=== PATIENT | female | born 1985 | race Caucasian/White ===

== ENCOUNTER 2018-11-27 16:22 | Emergency (ER) | payer OTHER ==
--- NOTE | 2018-11-27 16:46 | EDM.PDOC ---
ED HPI GENERAL MEDICAL PROBLEM - General Chief Complaint: Skin Complaint Stated Complaint: PT HAS RASH OVER BODY Time Seen by Provider: 11/27/18 16:45 Source of Information: Reports: Patient History Limitations: Reports: No Limitations - History of Present Illness INITIAL COMMENTS - FREE TEXT/NARRATIVE: HISTORY AND PHYSICAL: History of present illness: Patient is an 9-year-old female presents with mom for concern of a rash. Mom states that they were recently traveling and staying in hotels and the family. When they returned home they both started developing a rash goes from the trunk and has spread down the legs. States the rash is itchy and not painful. Does not think that it is bedbugs and is concerned that it is scabies. Denies fevers , chills, nausea, vomiting, abdominal pain and have no other complaints at this time. Review of systems: As per history of present illness and below otherwise all systems reviewed and negative. Past medical history: As per history of present illness and as reviewed below otherwise noncontributory. Surgical history: As per history of present illness and as reviewed below otherwise noncontributory. Social history: No reported history of drug or alcohol abuse. Family history: As per history of present illness and as reviewed below otherwise noncontributory. Physical exam: General: Patient sitting comfortably in no acute distress and nontoxic appearing HEENT: Atraumatic, normocephalic, pupils reactive, negative for conjunctival pallor or scleral icterus, mucous membranes moist, throat clear, neck supple, nontender, trachea midline. No meningeal signs. Lungs: Clear to auscultation, breath sounds equal bilaterally, chest nontender. Heart: S1S2, regular, negative for clicks, rubs, or overt murmur. Abdomen: Soft, nondistended, nontender. Negative for masses or hepatosplenomegaly. Negative for costovertebral tenderness. No rigidity, rebound , guarding. Pelvis: Stable nontender. Genitourinary: Deferred. Rectal: Deferred. Skin: Multiple small red papules on the trunk and legs Extremities: Atraumatic, negative for cords or calf pain. Neurovascular unremarkable. Neuro: Awake, alert, oriented. Cranial nerves II through XII unremarkable. Cerebellum unremarkable. Motor and sensory unremarkable throughout. Exam nonfocal. Notes: Diagnostics: None Therapeutics: None Prescriptions: Permethrin Impression: Scabies Plan: 1. Use cream as instructed. Wash clothing, linens, stuffed animals in hot water or place in a plastic bag for at least 3 days. 2. Follow up with primary care provider 3. Return to ED as needed as discussed Definitive disposition and diagnosis as appropriate pending reevaluation and review of above. - Related Data Allergies Allergy/AdvReac Type Severity Reaction Status Date / Time No Known Allergies Allergy Verified 11/27/18 16:34 Home Meds: Home Meds Vilazodone Hydrochloride [Viibryd] 1 tab PO DAILY 03/07/18 [History] Permethrin 60 gm TP ONETIME 1 Days #1 tube 11/27/18 [Rx] Past Medical History Neurological History: Reports: Other (See Below) Other Neuro History: brain tumor Psychiatric History: Reports: Depression - Infectious Disease History Infectious Disease History: Reports: Chicken Pox Social & Family History - Family History Family Medical History: Noncontributory - Tobacco Use Smoking Status *Q: Former Smoker Used Tobacco, but Quit: Yes Month/Year Tobacco Last Used: 2017 - Caffeine Use Caffeine Use: Reports: Coffee, Energy Drinks, Soda, Tea - Recreational Drug Use Recreational Drug Use: No ED ROS GENERAL - Review of Systems Review Of Systems: ROS reveals no pertinent complaints other than HPI. ED EXAM, SKIN/RASH Exam: See Below (see dictation) Course - Vital Signs Last Recorded V/S: Last Vital Signs Temp 97.6 F 11/27/18 16:35 Pulse 87 11/27/18 16:35 Resp 17 11/27/18 16:35 BP 116/78 11/27/18 16:35 Pulse Ox 100 11/27/18 16:35 Departure - Departure Time of Disposition: 16:45 Disposition: Home, Self-Care 01 Condition: Good Clinical Impression: Scabies - Discharge Information Prescriptions: Permethrin 60 gm TP ONETIME 1 Days #1 tube Instructions: Scabies, Adult Forms: ED Department Discharge Additional Instructions: The following information is given to patients seen in the emergency department who are being discharged to home. This information is to outline your options for follow-up care. We provide all patients seen in our emergency department with a follow-up referral. The need for follow-up, as well as the timing and circumstances, are variable depending upon the specifics of your emergency department visit. If you don't have a primary care physician on staff, we will provide you with a referral. We always advise you to contact your personal physician following an emergency department visit to inform them of the circumstance of the visit and for follow-up with them and/or the need for any referrals to a consulting specialist. The emergency department will also refer you to a specialist when appropriate. This referral assures that you have the opportunity for follow-up care with a specialist. All of these measure are taken in an effort to provide you with optimal care, which includes your follow-up. Under all circumstances we always encourage you to contact your private physician who remains a resource for coordinating your care. When calling for follow-up care, please make the office aware that this follow-up is from your recent emergency room visit. If for any reason you are refused follow-up, please contact the [facility] Emergency Department at and asked to speak to the emergency department charge nurse. [facility] [address] [place] [id number] [facility] [address] [place] [id number] 1. Use cream as instructed. Wash clothing, linens, stuffed animals in hot water or place in a plastic bag for at least 3 days. 2. Follow up with primary care provider 3. Return to ED as needed as discussed
== END 2018-11-27 17:06 | disposition home or self-care (01) ==
LOC: MW.ED 16:22
DX: B86 Scabies (principal); F32.9 Major depressive disorder, single episode, unspecified; Z79.899 Other long term (current) drug therapy
CPT/HCPCS: 99282

== ENCOUNTER 2019-05-04 15:05 | Emergency (ER) | payer MEDICAID, OTHER ==
--- NOTE | 2019-05-04 15:21 | EDM.PDOC ---
ED HPI GENERAL MEDICAL PROBLEM - General Chief Complaint: ENT Problem Stated Complaint: SORE THROAT Time Seen by Provider: 05/04/19 15:21 Source of Information: Reports: Patient - History of Present Illness INITIAL COMMENTS - FREE TEXT/NARRATIVE: HISTORY AND PHYSICAL: History of present illness: [Presents with sore throat and general malaise for the last 48 hours no current nausea vomiting chills sweats ] Review of systems: As per history of present illness and below otherwise all systems reviewed and negative. Past medical history: As per history of present illness and as reviewed below otherwise noncontributory. Surgical history: As per history of present illness and as reviewed below otherwise noncontributory. Social history: No reported history of drug or alcohol abuse. Family history: As per history of present illness and as reviewed below otherwise noncontributory. Physical exam: HEENT: Atraumatic, normocephalic, pupils reactive, negative for conjunctival pallor or scleral icterus, mucous membranes moist, throat clear, neck supple, nontender, trachea midline. moderate erythema no exudates Lungs: Clear to auscultation, breath sounds equal bilaterally, chest nontender. Heart: S1S2, regular, negative for clicks, rubs, or JVD. Abdomen: Soft, nondistended, nontender. Negative for masses or hepatosplenomegaly. Negative for costovertebral tenderness. Pelvis: Stable nontender. Genitourinary: Deferred. Rectal: Deferred. Extremities: Atraumatic, negative for cords or calf pain. Neurovascular unremarkable. Neuro: Awake, alert, oriented. Cranial nerves II through XII unremarkable. Cerebellum unremarkable. Motor and sensory unremarkable throughout. Exam nonfocal. Diagnostics: [Influenza/strep ] Therapeutics: [ flu Rest fluids nutrition ] Impression: [ influenzxa b Definitive disposition and diagnosis as appropriate pending reevaluation and review of above. throat Pain Score (Numeric/FACES): 9 - Related Data Allergies Allergy/AdvReac Type Severity Reaction Status Date / Time No Known Allergies Allergy Verified 05/04/19 15:15 Home Meds: Home Meds Vilazodone Hydrochloride [Viibryd] 1 tab PO DAILY 03/07/18 [History] Permethrin 60 gm TP ONETIME 1 Days #1 tube 11/27/18 [Rx] Past Medical History Neurological History: Reports: Other (See Below) Other Neuro History: brain tumor Psychiatric History: Reports: Depression - Infectious Disease History Infectious Disease History: Reports: None Social & Family History - Family History Family Medical History: Noncontributory - Tobacco Use Smoking Status *Q: Never Smoker - Caffeine Use Caffeine Use: Reports: Coffee - Recreational Drug Use Recreational Drug Use: No ED ROS GENERAL - Review of Systems Review Of Systems: See Below ED EXAM, GENERAL - Physical Exam Exam: See Below Course - Vital Signs Last Recorded V/S: Last Vital Signs Temp 97.8 F 05/04/19 15:16 Pulse 90 05/04/19 15:16 Resp 14 05/04/19 15:16 BP 124/81 05/04/19 15:16 Pulse Ox 96 05/04/19 15:16 - Orders/Labs/Meds Orders: Active Orders 24 hr Category Date Time Status STREP SCRN A RAPID W CULT CONF [RM] Stat Lab 05/04/19 15:19 Received Departure - Departure Time of Disposition: 15:56 Disposition: Home, Self-Care 01 Condition: Good Clinical Impression: Influenza - Discharge Information Referrals: PCP,None [Primary Care Provider] - Forms: ED Department Discharge Additional Instructions: The following information is given to patients seen in the emergency department who are being discharged to home. This information is to outline your options for follow-up care. We provide all patients seen in our emergency department with a follow-up referral. The need for follow-up, as well as the timing and circumstances, are variable depending upon the specifics of your emergency department visit. If you don't have a primary care physician on staff, we will provide you with a referral. We always advise you to contact your personal physician following an emergency department visit to inform them of the circumstance of the visit and for follow-up with them and/or the need for any referrals to a consulting specialist. The emergency department will also refer you to a specialist when appropriate. This referral assures that you have the opportunity for follow-up care with a specialist. All of these measure are taken in an effort to provide you with optimal care, which includes your follow-up. Under all circumstances we always encourage you to contact your private physician who remains a resource for coordinating your care. When calling for follow-up care, please make the office aware that this follow-up is from your recent emergency room visit. If for any reason you are refused follow-up, please contact the [facility] emergency department at and asked to speak to the emergency department charge nurse. Sepsis Event Note - Evaluation Sepsis Screening Result: No Definite Risk - Focused Exam Vital Signs: Vital Signs Temp Pulse Resp BP Pulse Ox 05/04/19 15:16 97.8 F 90 14 124/81 96 Date Exam was Performed: 05/04/19 Time Exam was Performed: 15:55 - My Orders Last 24 Hours: My Active Orders 05/04/19 15:19 STREP SCRN A RAPID W CULT CONF [RM] Stat - Assessment/Plan Last 24 Hours: My Active Orders 05/04/19 15:19 STREP SCRN A RAPID W CULT CONF [RM] Stat
== END 2019-05-04 16:07 | disposition home or self-care (01) ==
LOC: MW.ED 15:05
DX: J10.1 Influenza due to other identified influenza virus with other respiratory manifestations (principal); F32.9 Major depressive disorder, single episode, unspecified; Z79.899 Other long term (current) drug therapy
CPT/HCPCS: 87081; 87804; 87880-QW; 99283

== ENCOUNTER 2021-01-25 12:12 | Emergency (ER) | payer MEDICAID ==
--- NOTE | 2021-01-25 13:48 | EDM.PDOC ---
ED HPI GENERAL MEDICAL PROBLEM - General Chief Complaint: Flank Pain Stated Complaint: KIDNEY PAIN Time Seen by Provider: 01/25/21 13:33 Source of Information: Reports: Patient History Limitations: Reports: No Limitations - History of Present Illness INITIAL COMMENTS - FREE TEXT/NARRATIVE: HISTORY AND PHYSICAL: History of present illness: Patient is a 35-year-old female who presents to the emergency room with complaints of bilateral flank pain over the past few months. She states she has a longstanding history of kidney infection and bladder infections. Earlier this year she had insurance, primary care had referred her to urology. Due to change in employment she did not follow-up and now would like to be evaluated for her acute on chronic flank pain. Patient denies any fever, chills, headache, change in vision, syncope or near syncope. Denies any chest pain, back pain, shortness of breath or cough. Denies any abdominal pain, nausea, vomiting, diarrhea, constipation or dysuria. Has not noted any blood in urine or stool. Patient has been eating and drinking appropriately. Review of systems: As per history of present illness and below otherwise all systems reviewed and negative. Past medical history: As per history of present illness and as reviewed below otherwise noncontributory. Surgical history: As per history of present illness and as reviewed below otherwise noncontributory. Social history: See social history for further information Family history: As per history of present illness and as reviewed below otherwise noncontributory. Physical exam: General: Well developed and well nourished. Alert and orientated x 3. Nontoxic in appearance and in no acute distress. Vital signs are stable and have been reviewed by me. Nursing notes were reviewed. HEENT: Atraumatic, normocephalic, pupils equal and reactive bilaterally, negative for conjunctival pallor or scleral icterus, mucous membranes moist, TMs normal bilaterally, throat clear, neck supple, nontender, trachea midline. No drooling or trismus noted. No meningeal signs. No hot potato voice noted. Lungs: Clear to auscultation bilaterally. No wheezes, rales, or rhonchi. Chest nontender. Normal work of breathing, no accessory muscles used. Heart: S1S2, regular rate and rhythm without overt murmur, gallops, or rubs. No JVD. No peripheral edema Abdomen: Soft, nondistended, nontender. Normoactive bowel sounds. Negative for masses or costovertebral tenderness. Pelvis: Stable nontender. Genitourinary/Rectal: Deferred. Skin: Intact, warm, dry. No lesions or rashes noted. Hematologic: No petechiae or purpra. Mucosa appropriate color and normal nail bed color and refill. Extremities: Atraumatic, moves all extremities per self without difficulty or deficits, negative for cords or calf pain. Neurovascular unremarkable. Neuro: Awake, alert, oriented. Cranial nerves II through XII unremarkable. Cerebellum unremarkable. Motor and sensory unremarkable throughout. Exam nonfocal. Psychiatric: Mood and affect are appropriate. Normal thought process. Answering questions appropriately. Please note that the patient was seen and evaluated during the 2019 SARS-CoV-2 novel coronavirus pandemic period. Community viral transmission is ongoing at time of this encounter and the emergency department is operating under pandemic response procedures. Medical Decision Making: Patient is a 35-year-old female who presents to the emergency room with complaints of bilateral flank pain over the past few months. She is concerned she may have a kidney infection as she does have a history of UTI and kidney infections. Her physical exam is unremarkable, she does have mild bilateral flank tenderness. We will do basic lab work and urinalysis. Serum blood work is unremarkable. Urine shows few bacteria, culture has been added. Since she is symptomatic I will do a 3-day course of Bactrim DS. We will call her if her medication needs to be extended or change, culture pending. I have talked with the patient about today's findings, in addition to providing specific details for plan of care. Reassessment at the time of disposition demonstrates that the patient is in no acute distress. The patient is stable for discharge, counseling was provided and we discussed in great detail signs and symptoms that would prompt them to return to the Emergency Department. Medication, follow up and supportive care measures were reviewed and discussed. Voices understanding and is agreeable to plan of care. Denies any further questions or concerns at this time. Diagnostics: UA, hCG, CMP, CBC Therapeutics: None Prescription: Bactrim DS Impression: UTI Plan: 1. You were evaluated today on an emergent basis. Your urine shows minimal signs of UTI; urine culture has been added. We will give you a short course of antibiotics and call you if we need to extend or change your antibiotics. 2. You can alternate Tylenol and ibuprofen as needed for pain and fever management. 3. We encourage you to follow up with your primary care provider and/or recommended specialist in the next few days for re-evaluation and further care/management. 4. If your symptoms should worsen, new symptoms develop or any of the signs and symptoms we discussed should arise please return to the emergency room or call 911 (if needed). Definitive disposition and diagnosis as appropriate pending reevaluation and review of above. flank Pain Score (Numeric/FACES): 7 - Related Data Allergies Allergy/AdvReac Type Severity Reaction Status Date / Time No Known Allergies Allergy Verified 01/25/21 13:59 Home Meds: Home Meds Sulfamethoxazole/Trimethoprim [Bactrim Ds Tablet] 1 each PO BID 3 Days #6 tablet 01/25/21 [Rx] Past Medical History Neurological History: Reports: Other (See Below) Other Neuro History: brain tumor Psychiatric History: Reports: Depression - Infectious Disease History Infectious Disease History: Reports: None Social & Family History - Family History Family Medical History: No Pertinent Family History - Caffeine Use Caffeine Use: Reports: Coffee ED ROS GENERAL - Review of Systems Review Of Systems: Comprehensive ROS is negative, except as noted in HPI. ED EXAM, RENAL/ - Physical Exam Exam: See Below (See dictation) Course - Vital Signs Last Recorded V/S: Last Vital Signs Temp 98 F 01/25/21 13:52 Pulse 77 01/25/21 13:52 Resp 18 01/25/21 13:52 BP 129/93 H 01/25/21 13:52 Pulse Ox 100 01/25/21 13:52 - Orders/Labs/Meds Orders: Active Orders 24 hr Category Date Time Status CULTURE URINE [MREF] Stat Lab 01/25/21 12:56 Received Labs: Laboratory Tests 01/25/21 01/25/21 01/25/21 Range/Units 12:56 12:56 14:00 WBC 6.97 (4.0-11.0) K/uL RBC 4.17 L (4.30-5.90) M/uL Hgb 12.9 (12.0-16.0) g/dL Hct 38.2 (36.0-46.0) % MCV 91.6 (80.0-98.0) fL MCH 30.9 (27.0-32.0) pg MCHC 33.8 (31.0-37.0) g/dL RDW Std Deviation 42.6 (28.0-62.0) fl RDW Coeff of Khalida 13 (11.0-15.0) % Plt Count 225 (150-400) K/uL MPV 9.10 (7.40-12.00) fL Neut % (Auto) 54.3 (48.0-80.0) % Lymph % (Auto) 31.6 (16.0-40.0) % [place] % (Auto) 11.5 (0.0-15.0) % Eos % (Auto) 2.0 (0.0-7.0) % Baso % (Auto) 0.6 (0.0-1.5) % Neut # (Auto) 3.8 (1.4-5.7) K/uL Lymph # (Auto) 2.2 (0.6-2.4) K/uL [place] # (Auto) 0.8 (0.0-0.8) K/uL Eos # (Auto) 0.1 (0.0-0.7) K/uL Baso # (Auto) 0.0 (0.0-0.1) K/uL Nucleated RBC % 0.0 /100WBC Nucleated RBCs # 0 K/uL Sodium (136-145) mmol/L Potassium (3.5-5.1) mmol/L Chloride (98-107) mmol/L Carbon Dioxide (21.0-32.0) mmol/L BUN (7.0-18.0) mg/dL Creatinine (0.6-1.0) mg/dL Est Cr Clr Drug Dosing mL/min Estimated GFR (MDRD) ml/min Glucose (74-106) mg/dL Calcium (8.5-10.1) mg/dL Total Bilirubin (0.2-1.0) mg/dL AST (15-37) IU/L ALT (14-63) IU/L Alkaline Phosphatase (46-116) U/L Total Protein (6.4-8.2) g/dL Albumin (3.4-5.0) g/dL Globulin (2.6-4.0) g/dL Albumin/Globulin Ratio (0.9-1.6) Urine Color YELLOW Urine Appearance CLEAR Urine pH 7.0 (5.0-8.0) Ur Specific [place] 1.010 (1.001-1.035) Urine Protein NEGATIVE (NEGATIVE) mg/dL Urine Glucose (UA) NEGATIVE (NEGATIVE) mg/dL Urine Ketones NEGATIVE (NEGATIVE) mg/dL Urine Occult Blood NEGATIVE (NEGATIVE) Urine Nitrite NEGATIVE (NEGATIVE) Urine Bilirubin NEGATIVE (NEGATIVE) Urine Urobilinogen 0.2 (<2.0) EU/dL Ur Leukocyte Esterase SMALL H (NEGATIVE) Urine RBC NONE SEEN (0-2/HPF) Urine WBC 0-2 (0-5/HPF) Ur Epithelial Cells FEW (NONE-FEW) Urine Bacteria FEW (NEGATIVE) Urine Mucus LIGHT (NONE-MOD) Urine HCG, Qual NEGATIVE (NEGATIVE) 01/25/21 Range/Units 14:00 WBC (4.0-11.0) K/uL RBC (4.30-5.90) M/uL Hgb (12.0-16.0) g/dL Hct (36.0-46.0) % MCV (80.0-98.0) fL MCH (27.0-32.0) pg MCHC (31.0-37.0) g/dL RDW Std Deviation (28.0-62.0) fl RDW Coeff of Khalida (11.0-15.0) % Plt Count (150-400) K/uL MPV (7.40-12.00) fL Neut % (Auto) (48.0-80.0) % Lymph % (Auto) (16.0-40.0) % [place] % (Auto) (0.0-15.0) % Eos % (Auto) (0.0-7.0) % Baso % (Auto) (0.0-1.5) % Neut # (Auto) (1.4-5.7) K/uL Lymph # (Auto) (0.6-2.4) K/uL [place] # (Auto) (0.0-0.8) K/uL Eos # (Auto) (0.0-0.7) K/uL Baso # (Auto) (0.0-0.1) K/uL Nucleated RBC % /100WBC Nucleated RBCs # K/uL Sodium 139 (136-145) mmol/L Potassium 4.1 (3.5-5.1) mmol/L Chloride 105 (98-107) mmol/L Carbon Dioxide 28.1 (21.0-32.0) mmol/L BUN 14 (7.0-18.0) mg/dL Creatinine 0.7 (0.6-1.0) mg/dL Est Cr Clr Drug Dosing 118.35 mL/min Estimated GFR (MDRD) > 60.0 ml/min Glucose 86 (74-106) mg/dL Calcium 8.3 L (8.5-10.1) mg/dL Total Bilirubin 0.3 (0.2-1.0) mg/dL AST 24 (15-37) IU/L ALT 27 (14-63) IU/L Alkaline Phosphatase 50 (46-116) U/L Total Protein 6.6 (6.4-8.2) g/dL Albumin 3.7 (3.4-5.0) g/dL Globulin 2.9 (2.6-4.0) g/dL Albumin/Globulin Ratio 1.3 (0.9-1.6) Urine Color Urine Appearance Urine pH (5.0-8.0) Ur Specific [place] (1.001-1.035) Urine Protein (NEGATIVE) mg/dL Urine Glucose (UA) (NEGATIVE) mg/dL Urine Ketones (NEGATIVE) mg/dL Urine Occult Blood (NEGATIVE) Urine Nitrite (NEGATIVE) Urine Bilirubin (NEGATIVE) Urine Urobilinogen (<2.0) EU/dL Ur Leukocyte Esterase (NEGATIVE) Urine RBC (0-2/HPF) Urine WBC (0-5/HPF) Ur Epithelial Cells (NONE-FEW) Urine Bacteria (NEGATIVE) Urine Mucus (NONE-MOD) Urine HCG, Qual (NEGATIVE) Departure - Departure Time of Disposition: 14:53 Disposition: Home, Self-Care 01 Clinical Impression: UTI, Urinary tract infectious disease - Discharge Information Prescriptions: Sulfamethoxazole/Trimethoprim [Bactrim Ds Tablet] 1 each PO BID 3 Days #6 tablet Instructions: Urinary Tract Infection, Adult, [id number] Referrals: Abhishek Islas MD [Primary Care Provider] - Forms: ED Department Discharge Additional Instructions: The following information is given to patients seen in the emergency department who are being discharged to home. This information is to outline your options for follow-up care. We provide all patients seen in our emergency department with a follow-up referral. The need for follow-up, as well as the timing and circumstances, are variable depending upon the specifics of your emergency department visit. If you don't have a primary care physician on staff, we will provide you with a referral. We always advise you to contact your personal physician following an emergency department visit to inform them of the circumstance of the visit and for follow-up with them and/or the need for any referrals to a consulting specialist. The emergency department will also refer you to a specialist when appropriate. This referral assures that you have the opportunity for follow-up care with a specialist. All of these measure are taken in an effort to provide you with optimal care, which includes your follow-up. Under all circumstances we always encourage you to contact your private physician who remains a resource for coordinating your care. When calling for follow-up care, please make the office aware that this follow-up is from your recent emergency room visit. If for any reason you are refused follow-up, please contact the [facility] Emergency Department at and asked to speak to the emergency department charge nurse. [facility] [address] [place] [id number] [address] [address] Thank you for choosing the [facility] emergency department in [place] for your medical needs today. It was a pleasure caring for you. Today you were seen in the emergency department for UTI symptoms. 1. You were evaluated today on an emergent basis. Your urine shows minimal signs of UTI; urine culture has been added. We will give you a short course of antibiotics and call you if we need to extend or change your antibiotics. 2. You can alternate Tylenol and ibuprofen as needed for pain and fever management. 3. We encourage you to follow up with your primary care provider and/or recommended specialist in the next few days for re-evaluation and further care/management. 4. If your symptoms should worsen, new symptoms develop or any of the signs and symptoms we discussed should arise please return to the emergency room or call 911 (if needed). Sepsis Event Note (ED) - Focused Exam Vital Signs: Vital Signs Temp Pulse Resp BP Pulse Ox 01/25/21 13:52 98 F 77 18 129/93 H 100 - My Orders Last 24 Hours: My Active Orders 01/25/21 12:56 CULTURE URINE [MREF] Stat - Assessment/Plan Last 24 Hours: My Active Orders 01/25/21 12:56 CULTURE URINE [MREF] Stat
[2021-01-25 14:49] LABS: BLOOD UREA NITROGEN,BUN 14 mg/dL (7.0-18.0); CARBON DIOXIDE,CO2 28.1 mmol/L (21.0-32.0); CHLORIDE,CL 105 mmol/L (98-107); GLUCOSE RANDOM 86 mg/dL (74-106); POTASSIUM,K 4.1 mmol/L (3.5-5.1); SODIUM,NA 139 mmol/L (136-145)
== END 2021-01-25 15:17 | disposition home or self-care (01) ==
LOC: MW.ED 12:12
DX: N39.0 Urinary tract infection, site not specified (principal)
CPT/HCPCS: 36415; 80053; 81001; 81025; 85025; 87086; 99284

== ENCOUNTER 2021-02-19 17:02 | Emergency (ER) | payer MEDICAID ==
--- NOTE | 2021-02-19 17:18 | EDM.PDOC ---
<Pierre Solorio - Last Filed: 02/19/21 18:35> ED HPI GENERAL MEDICAL PROBLEM - General Stated Complaint: DISORIENTED, CHEST PAIN, DIFFICULTY BREATHING Time Seen by Provider: 02/19/21 17:12 Source of Information: Reports: Patient History Limitations: Reports: No Limitations - History of Present Illness INITIAL COMMENTS - FREE TEXT/NARRATIVE: 35-year-old female no relevant past medical history presents for syncopal episode. Patient was at work. She was in her normal state of health. She began to develop a pain in her mid substernal chest which was worse with breathing and she subsequently passed out. She was out for a couple of seconds. She denies any injuries with the fall. She stood back up again but had 1 more episode of passing out. Afterwards she has been feeling slowly better but still with notes pain in her chest, shortness of breath, pleuritic pain. She also feels a bit lightheaded, dizzy, "out of it". No history of blood clots. She does vape but does not smoke. She gets a Depo shot but does not take OCPs. chest Pain Score (Numeric/FACES): 5 - Related Data Allergies Allergy/AdvReac Type Severity Reaction Status Date / Time No Known Allergies Allergy Verified 02/19/21 17:18 Home Meds: Home Meds . [No Known Home Meds] 02/19/21 [History] Past Medical History Genitourinary History: Reports: UTI, Recurrent Neurological History: Reports: Other (See Below) Other Neuro History: brain tumor Psychiatric History: Reports: Depression - Infectious Disease History Infectious Disease History: Reports: None Social & Family History - Family History Family Medical History: No Pertinent Family History - Caffeine Use Caffeine Use: Reports: Coffee ED ROS GENERAL - Review of Systems Review Of Systems: Comprehensive ROS is negative, except as noted in HPI. ED EXAM, GENERAL - Physical Exam Exam: See Below Exam Limited By: No Limitations General Appearance: Alert, WD/WN, No Apparent Distress, Anxious Eye Exam: Bilateral Eye: EOMI, PERRL Ears: Hearing Grossly Normal Throat/Mouth: Normal Voice, No Airway Compromise Head: Atraumatic, Normocephalic Neck: Normal Inspection, Supple, Non-Tender Respiratory/Chest: No Respiratory Distress, Lungs Clear, Normal Breath Sounds, No Accessory Muscle Use Cardiovascular: Normal Peripheral Pulses, Regular Rate, Rhythm, No Edema Extremities: Normal Inspection Neurological: Alert, Normal Cognition, Normal Gait Psychiatric: Normal Affect, Normal Mood Skin Exam: Warm, Dry, Intact, Normal Color #1 Interpretation EKG Date: 02/19/21 Time: 17:03 Rhythm: NSR Rate (Beats/Min): 89 Media: Normal P-Wave: Present QRS: Normal ST-T: Normal QT: Normal IN/PQ Interval: 161 Comparison: NA - No Prior EKG EKG Interpretation Comments: Normal EKG Course - Re-Assessments/Exams Free Text/Narrative Re-Assessment/Exam: 02/19/21 17:37 We will get labs including troponin, D-dimer, Covid testing. Will give IV fluid bolus. Patient does appear anxious, will give 0.5 mg of Ativan. Will give aspirin in the unlikely event this is ACS related chest pain. 02/19/21 18:21 Patient's D-dimer is elevated. Will get CTA imaging of the chest to rule out pulmonary embolism. 02/19/21 19:00 Patient care transitioned to Dr. Camarena to follow-up CTA imaging and disposition. Departure - Departure Disposition: Home, Self-Care 01 Clinical Impression: Syncope - Discharge Information Instructions: Syncope, [id number] Referrals: Abhishek Islas MD [Primary Care Provider] - Forms: ED Department Discharge Additional Instructions: You were evaluated today on an emergent basis. At this time your work-up was negative. There was no evidence of any clot in your lungs your electrolytes were normal, your Covid screening was negative. Your low risk and I do recommend that you follow-up with your primary care physician in 3 to 5 days for reevaluation and possible outpatient work-up. If you have persistent symptoms or recurrence please return to the emergency department. Please maintain hydration. [facility] [address] [place] [id number] [id number] The patient is informed of any results of their evaluation and diagnostic workup and all questions are answered. They are given discharge instructions and return precautions. The patient is stable for discharge. The patient states they understand and agree with the plan and that they will return if their symptoms get worse or if they have any new concerns. The following information is given to patients seen in the emergency department who are being discharged to home. This information is to outline your options for follow-up care. We provide all patients seen in our emergency department with a follow-up referral. The need for follow-up, as well as the timing and circumstances, are variable depending upon the specifics of your emergency department visit. If you don't have a primary care physician on staff, we will provide you with a referral. We always advise you to contact your personal physician following an emergency department visit to inform them of the circumstance of the visit and for follow-up with them and/or the need for any referrals to a consulting specialist. The emergency department will also refer you to a specialist when appropriate. This referral assures that you have the opportunity for follow-up care with a specialist. All of these measure are taken in an effort to provide you with optimal care, which includes your follow-up. Under all circumstances we always encourage you to contact your private physician who remains a resource for coordinating your care. When calling for follow-up care, please make the office aware that this follow-up is from your recent emergency room visit. If for any reason you are refused follow-up, please contact the [facility] Emergency Department at and asked to speak to the emergency department charge nurse. <Gunner Camarena - Last Filed: 02/20/21 07:16> ED HPI GENERAL MEDICAL PROBLEM - History of Present Illness INITIAL COMMENTS - FREE TEXT/NARRATIVE: Patient was signed out to me by Dr. Solorio at 7pm. I promptly performed a detailed physical examination and my examination was done after ED treatments were initiated by the signout provider. Patient has been under the care of previous provider up until this point. CT angiogram of the chest did not reveal any evidence of acute pulmonary embolism. On reevaluation I did discuss the results with the patient. At this time her work-up was negative and low risk. I did discuss with her she need to follow-up with her primary care physician in 3 to 5 days for reevaluation. She was amenable discharge at this time and had no further questions DISPOSITION: The patient was discharged home in stable condition. The patient will follow up with primary care physician in 3 to 5 days CONDITION: Fair PROCEDURES: None FINAL IMPRESSION(S)/DIAGNOSES: 1. Acute syncopal episode, likely vasovagal Gunner Camarena M.D. Course - Vital Signs Last Recorded V/S: Last Vital Signs Temp 36.7 C 02/19/21 17:19 Pulse 84 02/19/21 20:49 Resp 18 02/19/21 20:49 BP 126/82 02/19/21 20:49 Pulse Ox 100 02/19/21 20:49 - Orders/Labs/Meds Orders: Active Orders 24 hr Category Date Time Status Saline Lock Insert [OM.PC] Stat Oth 02/19/21 17:34 Ordered Labs: Laboratory Tests 02/19/21 02/19/21 02/19/21 Range/Units 17:10 17:10 17:10 WBC 8.83 (4.0-11.0) K/uL RBC 4.40 (4.30-5.90) M/uL Hgb 13.6 (12.0-16.0) g/dL Hct 40.2 (36.0-46.0) % MCV 91.4 (80.0-98.0) fL MCH 30.9 (27.0-32.0) pg MCHC 33.8 (31.0-37.0) g/dL RDW Std Deviation 43.0 (28.0-62.0) fl RDW Coeff of Khalida 13 (11.0-15.0) % Plt Count 306 (150-400) K/uL MPV 9.30 (7.40-12.00) fL Neut % (Auto) 62.3 (48.0-80.0) % Lymph % (Auto) 27.5 (16.0-40.0) % Graves % (Auto) 8.5 (0.0-15.0) % Eos % (Auto) 1.2 (0.0-7.0) % Baso % (Auto) 0.5 (0.0-1.5) % Neut # (Auto) 5.5 (1.4-5.7) K/uL Lymph # (Auto) 2.4 (0.6-2.4) K/uL Graves # (Auto) 0.8 (0.0-0.8) K/uL Eos # (Auto) 0.1 (0.0-0.7) K/uL Baso # (Auto) 0.0 (0.0-0.1) K/uL Nucleated RBC % 0.0 /100WBC Nucleated RBCs # 0 K/uL INR 0.98 APTT 22.5 (18.6-31.3) SEC D-Dimer, Quantitative 0.84 H (0.0-0.50) mg/L FEU Sodium 139 (136-145) mmol/L Potassium 4.2 (3.5-5.1) mmol/L Chloride 102 (98-107) mmol/L Carbon Dioxide 26.9 (21.0-32.0) mmol/L BUN 19 H (7.0-18.0) mg/dL Creatinine 0.9 (0.6-1.0) mg/dL Est Cr Clr Drug Dosing 92.05 mL/min Estimated GFR (MDRD) > 60.0 ml/min Glucose 96 (74-106) mg/dL Calcium 8.4 L (8.5-10.1) mg/dL Total Bilirubin 0.5 (0.2-1.0) mg/dL AST 25 (15-37) IU/L ALT 33 (14-63) IU/L Alkaline Phosphatase 52 (46-116) U/L Troponin I < 0.050 (0.000-0.056) ng/mL C-Reactive Protein <0.20 (0.00-0.90) mg/dL B-Natriuretic Peptide (<100) PG/ML Total Protein 7.8 (6.4-8.2) g/dL Albumin 4.1 (3.4-5.0) g/dL Globulin 3.7 (2.6-4.0) g/dL Albumin/Globulin Ratio 1.1 (0.9-1.6) HCG, Qual (NEG) SARS-CoV-2 RNA (JAMES) (NEGATIVE) 02/19/21 02/19/21 02/19/21 Range/Units 17:10 17:10 18:18 WBC (4.0-11.0) K/uL RBC (4.30-5.90) M/uL Hgb (12.0-16.0) g/dL Hct (36.0-46.0) % MCV (80.0-98.0) fL MCH (27.0-32.0) pg MCHC (31.0-37.0) g/dL RDW Std Deviation (28.0-62.0) fl RDW Coeff of Khalida (11.0-15.0) % Plt Count (150-400) K/uL MPV (7.40-12.00) fL Neut % (Auto) (48.0-80.0) % Lymph % (Auto) (16.0-40.0) % Graves % (Auto) (0.0-15.0) % Eos % (Auto) (0.0-7.0) % Baso % (Auto) (0.0-1.5) % Neut # (Auto) (1.4-5.7) K/uL Lymph # (Auto) (0.6-2.4) K/uL Graves # (Auto) (0.0-0.8) K/uL Eos # (Auto) (0.0-0.7) K/uL Baso # (Auto) (0.0-0.1) K/uL Nucleated RBC % /100WBC Nucleated RBCs # K/uL INR APTT (18.6-31.3) SEC D-Dimer, Quantitative (0.0-0.50) mg/L FEU Sodium (136-145) mmol/L Potassium (3.5-5.1) mmol/L Chloride (98-107) mmol/L Carbon Dioxide (21.0-32.0) mmol/L BUN (7.0-18.0) mg/dL Creatinine (0.6-1.0) mg/dL Est Cr Clr Drug Dosing mL/min Estimated GFR (MDRD) ml/min Glucose (74-106) mg/dL Calcium (8.5-10.1) mg/dL Total Bilirubin (0.2-1.0) mg/dL AST (15-37) IU/L ALT (14-63) IU/L Alkaline Phosphatase (46-116) U/L Troponin I (0.000-0.056) ng/mL C-Reactive Protein (0.00-0.90) mg/dL B-Natriuretic Peptide 6 (<100) PG/ML Total Protein (6.4-8.2) g/dL Albumin (3.4-5.0) g/dL Globulin (2.6-4.0) g/dL Albumin/Globulin Ratio (0.9-1.6) HCG, Qual NEGATIVE (NEG) SARS-CoV-2 RNA (JAMES) NEGATIVE (NEGATIVE) Meds: Medications Discontinued Medications Generic Name Dose Route Start Last Admin Trade Name Freq PRN Reason Stop Dose Admin Aspirin 324 mg 02/19/21 17:34 02/19/21 17:56 Aspirin 81 Mg Tab.Chew PO 02/19/21 17:35 324 mg ONETIME ONE Administration Sodium Chloride 1,000 mls @ 999 mls/hr 02/19/21 17:34 02/19/21 17:56 Normal Saline IV 02/19/21 18:34 999 mls/hr .Bolus ONE Administration Iopamidol 100 ml 02/19/21 18:57 Iopamidol 755 Mg/Ml 100 Ml Bottle IVPUSH 02/19/21 18:58 ONETIME ONE Lorazepam 0.5 mg 02/19/21 17:34 02/19/21 17:56 Lorazepam 2 Mg/Ml Sdv IVPUSH 02/19/21 17:35 0.5 mg ONETIME ONE Administration Departure - Departure Time of Disposition: 20:07 Condition: Fair - Discharge Information *PRESCRIPTION DRUG MONITORING PROGRAM REVIEWED*: No *COPY OF PRESCRIPTION DRUG MONITORING REPORT IN PATIENT ANA M: No Sepsis Event Note (ED) - Focused Exam Vital Signs: Vital Signs Pulse Resp BP Pulse Ox 02/19/21 20:49 84 18 126/82 100
[2021-02-19] MEDS ORDERED: LORazepam 2 MG/ML SDV IVPUSH ONE (17:34)
[2021-02-19] MEDS ORDERED: Sodium Chloride 0.9% 1,000 ML IV ONE (17:34)
[2021-02-19] MEDS ORDERED: Aspirin 81 MG Tab.Chew PO ONE (17:34)
[2021-02-19 17:56] LABS: BLOOD UREA NITROGEN,BUN 19 mg/dL (7.0-18.0); CARBON DIOXIDE,CO2 26.9 mmol/L (21.0-32.0); CHLORIDE,CL 102 mmol/L (98-107); GLUCOSE RANDOM 96 mg/dL (74-106); POTASSIUM,K 4.2 mmol/L (3.5-5.1); SODIUM,NA 139 mmol/L (136-145)
--- NOTE | 2021-02-19 18:17 | CR ---
INDICATION: Chest pain and syncope. TECHNIQUE: Chest 1 view. COMPARISON: None FINDINGS: Cardiovascular and mediastinum: Heart size and vasculature are normal in caliber and appearance. Mediastinum is within normal limits. Lungs and pleural space: Lungs are clear. No sign of infiltrate or mass. No sign of pleural effusion. No pneumothorax. Bones and soft tissues: No significant findings. IMPRESSION: Unremarkable chest. Dictated by Seven Fuller MD @ 02/19/2021 6:16:14 PM (Electronically Signed)
[2021-02-19] MEDS ORDERED: Iopamidol 755 Mg/ML 100 ML Bottle IVPUSH ONE (18:57)
--- NOTE | 2021-02-19 19:08 | CT ---
HISTORY: Elevated D-dimer. Evaluate for pulmonary embolism. COMPARISON: None. TECHNIQUE: Axial images were obtained through the chest following 75 cc of Isovue-370 intravenous contrast. FINDINGS: The lungs are clear. Adequate bolus of contrast. No evidence for pulmonary embolism. No pleural or pericardial effusion. No thoracic lymphadenopathy. Bones within normal. IMPRESSION: No evidence for pulmonary embolism. Please note that all CT scans at this facility use dose modulation, iterative reconstruction, and/or weight-based dosing when appropriate to reduce radiation dose to as low as reasonably achievable. Dictated by Marta aJrvis MD @ 02/19/2021 7:05:43 PM (Electronically Signed)
== END 2021-02-19 20:57 | disposition home or self-care (01) ==
LOC: MW.ED 17:02
DX: R55 Syncope and collapse (principal); Z20.822 Contact with and (suspected) exposure to COVID-19
CPT/HCPCS: 36415; 71045; 71275; 80053; 83880; 84484; 84703; 85025; 85379; 85610; 85730; 86140; 87635; 93005; 96374; 99285; A9270; J2060; J7030; 93010; 99284; U0002

== ENCOUNTER 2021-06-13 10:20 | Emergency (ER) | payer BC, MEDICAID ==
[2021-06-13] MEDS ORDERED: Sodium Chloride 0.9% 10 ML Syringe FLUSH PRN (11:07)
[2021-06-13] MEDS ORDERED: Sodium Chloride 0.9% 2.5 ML Syringe FLUSH PRN (11:07)
[2021-06-13 12:15] LABS: BLOOD UREA NITROGEN,BUN 17 mg/dL (7.0-18.0); CARBON DIOXIDE,CO2 25.8 mmol/L (21.0-32.0); CHLORIDE,CL 104 mmol/L (98-107); GLUCOSE RANDOM 86 mg/dL (74-106); POTASSIUM,K 3.7 mmol/L (3.5-5.1); SODIUM,NA 139 mmol/L (136-145)
== END 2021-06-13 14:20 | disposition home or self-care (01) ==
LOC: MW.ED 10:20
DX: R55 Syncope and collapse (principal); R10.9 Unspecified abdominal pain
CPT/HCPCS: 36415; 70450; 70450-26; 74176; 74176-26; 80053; 81001; 83735; 84146; 84443; 84484; 84703; 85025; 93005; 99285-25

== ENCOUNTER 2021-08-13 09:44 | Emergency (ER) | payer MEDICAID, OTHER | END 2021-08-13 11:10 | disposition home or self-care (01) | LOC: MW.ED 09:44 | DX: J02.9 Acute pharyngitis, unspecified (principal) | CPT/HCPCS: 87651-QW; 87804; 99282; 99283 ==

== ENCOUNTER 2021-10-07 14:34 | Emergency (ER) | payer OTHER, MEDICAID, BC ==
[2021-10-07] MEDS ORDERED: Ketorolac 30 MG/ML SDV IM ONE (16:31)
[2021-10-07] MEDS ORDERED: Lidocaine 5% 700 MG Patch TRDERM ONE (17:17)
== END 2021-10-07 18:41 | disposition home or self-care (01) ==
LOC: MW.ED 14:34
DX: S20.219A Contusion of unspecified front wall of thorax, initial encounter (principal); Z86.16 Personal history of COVID-19; V49.49XA Driver injured in collision with other motor vehicles in traffic accident, initial encounter; Y92.009 Unspecified place in unspecified non-institutional (private) residence as the place of occurrence of the external cause
CPT/HCPCS: 71045; 71120; 93005; 96372; 99284; A9270; J1885

== ENCOUNTER 2022-09-29 09:26 | Emergency (ER) | payer BC, MEDICAID ==
[2022-09-29] MEDS ORDERED: Ibuprofen 400 MG Tab PO ONE (09:47)
[2022-09-29] MEDS ORDERED: Acetaminophen 325 MG Tab PO ONE (09:47)
[2022-09-29] MEDS ORDERED: Lidocaine 4% 1 each Patch TOP SCH (10:00)
[2022-09-29] MEDS ORDERED: Iopamidol 755 MG/ML 500 ML Multipack Bottle IVPUSH ONE (11:45)
[2022-09-29 12:18] LABS: A/G RATIO 1.1 (0.9-1.6); ALBUMIN 4.1 g/dL (3.4-5.0); BILIRUBIN TOTAL 0.7 mg/dL (0.2-1.0); CALCIUM 9.6 mg/dL (8.5-10.1); CARBON DIOXIDE,CO2 25.1 mmol/L (21.0-32.0); CREATININE 0.9 mg/dL (0.6-1.0); EST CRCL DRUG DOSING (CG) 90.31 mL/min; POTASSIUM,K 4.1 mmol/L (3.5-5.1)
== END 2022-09-29 13:17 | disposition home or self-care (01) ==
LOC: MW.ED 09:26
DX: R07.89 Other chest pain (principal); Z86.16 Personal history of COVID-19
CPT/HCPCS: 36415; 71260; 80053; 84703; 99285; A9270; Q9967; 99283

== ENCOUNTER 2023-06-08 15:26 | Emergency (ER) | payer OTHER, MEDICAID | END 2023-06-08 18:03 | disposition home or self-care (01) | LOC: MW.ED 15:26 | DX: T52.0X1A Toxic effect of petroleum products, accidental (unintentional), initial encounter (principal); T26.91XA Corrosion of right eye and adnexa, part unspecified, initial encounter; T26.92XA Corrosion of left eye and adnexa, part unspecified, initial encounter; Z86.16 Personal history of COVID-19 | CPT/HCPCS: 99283 ==